=== PATIENT | female | born 1980 | race Caucasian/White ===

== ENCOUNTER 2018-08-19 16:45 | Outpatient (CLI) | payer BC | END 2018-08-19 18:59 | disposition home or self-care (01) | LOC: OBT 16:45 → L-D 16:48 → OBT 18:59 | DX: O26.893 Other specified pregnancy related conditions, third trimester (principal); R29.810 Facial weakness; O09.523 Supervision of elderly multigravida, third trimester; Z3A.36 36 weeks gestation of pregnancy | CPT/HCPCS: 76815; 76818 ==

== ENCOUNTER 2018-09-09 10:40 | Inpatient (IN) | payer BC ==
[2018-09-09] MEDS ORDERED: CEFAZOLIN 2 GM/50 ML (PMX) 50 ML IVPB (11:00)
[2018-09-09] MEDS ORDERED: METHYLERGONOVINE 0.2 MG INJ IM ×2 (11:00→18:30)
[2018-09-09] MEDS ORDERED: OXYTOCIN 30 UNITS/LR 500 ML IV ×2 (11:00→18:30)
[2018-09-09] MEDS ORDERED: MISOPROSTOL 200 MCG TAB PR ×2 (11:00→18:30)
[2018-09-09] MEDS ORDERED: CARBOPROST 250 MCG INJ IM ×2 (11:00→18:30)
[2018-09-09 12:04] LABS: ADD MAN DIFF? NO
[2018-09-09] MEDS: LACTATED RINGER'S 1,000 ML IV ×2 (12:05→15:05)
[2018-09-09 12:11] LABS: WHITE BLOOD COUNT 8.6 10^3/ul (4.8-10.8)
[2018-09-09 12:11] LABS: BASOPHILS % 0.1 % (0.0-2.0); EOSINOPHILS # 0.1 10^3/ul (0.0-0.5); EOSINOPHILS % 0.9 % (0.0-7.0); HEMOGLOBIN 11.6 g/dl (12.0-16.0); LYMPHOCYTES # 1.7 10^3/ul (0.8-2.9); LYMPHOCYTES % 19.2 % (15.0-51.0); MEAN CORPUSCULAR HEMOGLOBIN 28.2 pg (29.0-33.0); MEAN CORPUSCULAR HGB CONC 33.1 g/dl (32.0-37.0); MEAN PLATELET VOLUME 10.4 fl (7.4-10.4); MONOCYTE # 0.5 10^3/ul (0.3-0.9); MONOCYTES % 5.7 % (0.0-11.0); NEUTROPHIL # 6.3 10^3/ul (1.6-7.5); NEUTROPHILS % 73.6 % (39.0-77.0); PLATELET COUNT 316 10^3/UL (140-415); RED BLOOD COUNT 4.12 10^6/ul (4.20-5.40); RED CELL DISTRIBUTION WIDTH 14.8 % (11.5-14.5)
[2018-09-09 12:32] LABS: INR 0.84; PROTIME 11.6 Sec (11.9-14.9); PT RATIO 0.9
[2018-09-09 12:33] LABS: PARTIAL THROMBOPLASTIN TIME 29.3 Sec (23.0-35.0)
[2018-09-09 12:56] LABS: HEPATITIS B SURFACE ANTIGEN NEGATIVE (NEGATIVE)
[2018-09-09] MEDS: METOCLOPRAMIDE 10 MG INJ IV (13:00)
[2018-09-09] MEDS: ONDANSETRON 4 MG INJ IV ×2 (13:00→20:20)
[2018-09-09] MEDS ORDERED: morphine SULFATE/PF (10 MG/10 ML) INJ (13:23)
[2018-09-09] MEDS ORDERED: PHENYLephrine 10 MG INJ (13:23)
[2018-09-09] MEDS ORDERED: DIPHENHYDRAMINE 50 MG INJ IV ×2 (13:30)
[2018-09-09] MEDS ORDERED: METOCLOPRAMIDE 10 MG INJ IV (13:30)
[2018-09-09] MEDS ORDERED: NALOXONE (0.4 MG/ML) INJ IV (13:30)
[2018-09-09] MEDS ORDERED: HYDROmorphONE 1 MG/5 ML IV SYRINGE IV ×3 (13:30)
[2018-09-09] MEDS ORDERED: KETOROLAC 30 MG INJ IV (13:30)
[2018-09-09] MEDS ORDERED: HYDROmorphONE 0.5 MG/0.5 ML SYG IV ×2 (13:30)
[2018-09-09] MEDS ORDERED: FENTAnyl 50 MCG/ML VIAL IV ×3 (13:30)
[2018-09-09] MEDS ORDERED: ALBUTEROL 0.083% (NEB) 2.5 MG/3 ML AMP HHN (13:30)
[2018-09-09] MEDS ORDERED: ONDANSETRON 4 MG INJ IV (13:30)
[2018-09-09 15:47] LABS: RAPID PLASMA REAGIN NONREACTIVE (NR)
[2018-09-09] MEDS: KETOROLAC 30 MG INJ IV (16:51)
[2018-09-09] MEDS ORDERED: LANOLIN HPA 1 PKT TOP (18:30)
[2018-09-09] MEDS ORDERED: METHYLERGONOVINE 0.2 MG TAB PO (18:30)
[2018-09-09] MEDS: OXYTOCIN 30 UNITS/LR 500 ML IV (18:39)
[2018-09-09] MEDS: DEXTROSE 5%-LR 1,000 ML IV (19:30)
[2018-09-09] MEDS: SENNA/DOCUSATE NA (8.6MG/50MG) TAB PO (21:00)
[2018-09-09] MEDS: IBUPROFEN 800 MG TAB PO (22:00)
[2018-09-10] MEDS: DEXTROSE 5%-LR 1,000 ML IV ×2 (02:05→10:05)
[2018-09-10] MEDS: LACTATED RINGER'S 1,000 ML IV ×2 (03:29→12:33)
[2018-09-10] MEDS: IBUPROFEN 800 MG TAB PO ×3 (06:00→22:18)
[2018-09-10] MEDS: KETOROLAC 30 MG INJ IV (06:11)
[2018-09-10 08:24] LABS: ADD MAN DIFF? NO
[2018-09-10 08:31] LABS: BASOPHILS % 0.1 % (0.0-2.0); EOSINOPHILS # 0.1 10^3/ul (0.0-0.5); EOSINOPHILS % 0.6 % (0.0-7.0); HEMATOCRIT 27.2 % (37.0-47.0); HEMOGLOBIN 9.1 g/dl (12.0-16.0); LYMPHOCYTES # 1.3 10^3/ul (0.8-2.9); LYMPHOCYTES % 16.1 % (15.0-51.0); MEAN CORPUSCULAR HEMOGLOBIN 28.2 pg (29.0-33.0); MEAN CORPUSCULAR HGB CONC 33.5 g/dl (32.0-37.0); MEAN CORPUSCULAR VOLUME 84.2 fl (82.0-101.0); MEAN PLATELET VOLUME 10.2 fl (7.4-10.4); MONOCYTE # 0.5 10^3/ul (0.3-0.9); MONOCYTES % 5.9 % (0.0-11.0); NEUTROPHIL # 6.4 10^3/ul (1.6-7.5); NEUTROPHILS % 76.9 % (39.0-77.0); PLATELET COUNT 275 10^3/UL (140-415); RED BLOOD COUNT 3.23 10^6/ul (4.20-5.40); RED CELL DISTRIBUTION WIDTH 14.6 % (11.5-14.5)
[2018-09-10 08:31] LABS: WHITE BLOOD COUNT 8.3 10^3/ul (4.8-10.8)
[2018-09-10] MEDS: SENNA/DOCUSATE NA (8.6MG/50MG) TAB PO ×2 (09:00→22:17)
[2018-09-10] MEDS ORDERED: HYDROCODONE/APAP (5/325) TAB NGT (11:00)
[2018-09-10] MEDS: DIPHTH/TET/ACEL PERTUSS (ADULT) 0.5 ML VIAL IM* (11:00)
[2018-09-10] MEDS: HYDROCODONE/APAP (5/325) TAB GTB ×2 (14:31→22:18)
[2018-09-11] MEDS: IBUPROFEN 800 MG TAB PO ×3 (05:56→21:35)
[2018-09-11] MEDS: HYDROCODONE/APAP (5/325) TAB GTB ×3 (05:56→21:36)
[2018-09-11] MEDS: SENNA/DOCUSATE NA (8.6MG/50MG) TAB PO ×2 (08:48→21:35)
[2018-09-11] MEDS: MAGNESIUM HYDROXIDE 30ML CUP PO (14:21)
[2018-09-11] MEDS: DIPHTH/TET/ACEL PERTUSS (ADULT) 0.5 ML VIAL IM* (17:55)
[2018-09-12] MEDS: IBUPROFEN 800 MG TAB PO ×3 (06:02→21:25)
[2018-09-12] MEDS: HYDROCODONE/APAP (5/325) TAB GTB ×3 (06:03→21:26)
[2018-09-12] MEDS ORDERED: DIPHTH/TET/ACEL PERTUSS (ADULT) 0.5 ML VIAL IM* ×2 (09:00→12:30)
[2018-09-12] MEDS: SENNA/DOCUSATE NA (8.6MG/50MG) TAB PO ×2 (10:29→21:25)
[2018-09-12] MEDS: MEASLES,MUMPS,RUBELLA VACCINE INJ SC* (10:31)
[2018-09-13] MEDS: IBUPROFEN 800 MG TAB PO ×2 (05:48→13:30)
[2018-09-13] MEDS: HYDROCODONE/APAP (5/325) TAB GTB ×2 (06:13→13:30)
[2018-09-13] MEDS: SENNA/DOCUSATE NA (8.6MG/50MG) TAB PO (09:14)
== END 2018-09-13 14:35 | disposition home or self-care (01) | DRG 788 ==
LOC: L-D 10:40 → PP1 17:54
PROVIDERS: Obstetrics & Gynecology
PROC: 10D00Z1 Extraction of Products of Conception, Low, Open Approach (ICD-10-PCS; principal; 2018-09-09 12:30)
DX: O34.211 Maternal care for low transverse scar from previous cesarean delivery (principal); O99.214 Obesity complicating childbirth; E66.01 Morbid (severe) obesity due to excess calories; O90.81 Anemia of the puerperium; D64.9 Anemia, unspecified; M79.662 Pain in left lower leg; M79.661 Pain in right lower leg; Z37.0 Single live birth; Z3A.39 39 weeks gestation of pregnancy
CPT/HCPCS: 85025; 85610; 85730; 86592; 86850; 86900; 86901; 87340; 90715; 93970; 99464

== ENCOUNTER 2018-10-07 20:12 | Emergency (ER) | payer BC ==
[2018-10-07 22:12] LABS: ADD MAN DIFF? NO
[2018-10-07 22:13] LABS: WHITE BLOOD COUNT 8.9 10^3/ul (4.8-10.8)
[2018-10-07 22:13] LABS: BASOPHILS % 0.1 % (0.0-2.0); EOSINOPHILS # 0.3 10^3/ul (0.0-0.5); EOSINOPHILS % 3.4 % (0.0-7.0); HEMATOCRIT 34.4 % (37.0-47.0); LYMPHOCYTES # 3.2 10^3/ul (0.8-2.9); LYMPHOCYTES % 35.4 % (15.0-51.0); MEAN CORPUSCULAR HEMOGLOBIN 27.2 pg (29.0-33.0); MEAN CORPUSCULAR VOLUME 84.9 fl (82.0-101.0); MEAN PLATELET VOLUME 9.3 fl (7.4-10.4); MONOCYTE # 0.5 10^3/ul (0.3-0.9); MONOCYTES % 5.8 % (0.0-11.0); NEUTROPHIL # 4.9 10^3/ul (1.6-7.5); PLATELET COUNT 398 10^3/UL (140-415); RED BLOOD COUNT 4.05 10^6/ul (4.20-5.40); RED CELL DISTRIBUTION WIDTH 14.5 % (11.5-14.5)
[2018-10-07 22:17] LABS: ADD UMIC YES; UR ASCORBIC ACID 40 mg/dL (NEGATIVE); UR BILIRUBIN (Dip) NEGATIVE (NEGATIVE); UR BLOOD (Dip) 2+ mg/dL (NEGATIVE); UR CLARITY CLEAR (CLEAR); UR COLOR STRAW (YELLOW); UR GLUCOSE (Dip) NEGATIVE (NEGATIVE); UR KETONES (Dip) NEGATIVE (NEGATIVE); UR LEUKOCYTE ESTERASE (Dip) NEGATIVE Leu/ul (NEGATIVE); UR NITRITE (Dip) NEGATIVE (NEGATIVE); UR RBC 0 /HPF (0-5); UR SPECIFIC GRAVITY (Dip) 1.014 (1.003-1.030); UR TOTAL PROTEIN (Dip) NEGATIVE (NEGATIVE); UR UROBILINOGEN (Dip) NEGATIVE (NEGATIVE); UR WBC 1 /HPF (0-5)
[2018-10-07 22:30] LABS: ALANINE AMINOTRANSFERASE 35 IU/L (13-69); ALBUMIN 3.9 g/dl (3.3-4.9); ALBUMIN/GLOBULIN RATIO 0.97; ALKALINE PHOSPHATASE 113 IU/L (42-121); ANION GAP 9 (5-13); ASPARTATE AMINO TRANSFERASE 39 IU/L (15-46); BILIRUBIN,INDIRECT 0.2 mg/dl (0-1.1); BILIRUBIN,TOTAL 0.2 mg/dl (0.2-1.3); BLOOD UREA NITROGEN 14 mg/dl (7-20); CALCIUM 9.2 mg/dl (8.4-10.2); CARBON DIOXIDE 27 mmol/L (21-31); CHLORIDE 105 mmol/L (97-110); CREATININE 0.84 mg/dl (0.44-1.00); Estimated GFR > 60 mL/min (>60); GLUCOSE 85 mg/dl (70-220); LIPASE 118 U/L (23-300); POTASSIUM 4.1 mmol/L (3.5-5.1); SODIUM 141 mmol/L (135-144); TOTAL PROTEIN 7.9 g/dl (6.1-8.1)
[2018-10-07] MEDS: ONDANSETRON 4 MG INJ IV (22:41)
[2018-10-07] MEDS: SOD CHLORIDE 0.9% 500 ML IV (22:41)
[2018-10-07] MEDS: morphine 2 MG INJ IV (22:47)
== END 2018-10-08 00:20 | disposition home or self-care (01) ==
LOC: FTE 10-08 00:20
DX: R10.32 Left lower quadrant pain (principal); R10.2 Pelvic and perineal pain
CPT/HCPCS: 36415; 74176; 76830; 76856; 80053; 81001; 81025; 83690; 85025; 96361; 96374; 96375; 99285-25